=== PATIENT | female | born 1995 | race Caucasian/White ===

== ENCOUNTER → 2020-07-31 11:11 | Outpatient (BNVA) | payer MEDICAID, SELFPAY | PROVIDERS: Family Provider Registered Nurse; Visit Provider Obstetrics & Gynecology | DX: O99.891 Other specified diseases and conditions complicating pregnancy (principal); Z86.59 Personal history of other mental and behavioral disorders; Z3A.11 11 weeks gestation of pregnancy | CPT/HCPCS: 80307; 84315; 85027; 86592; 86762; 86803; 86850; 86900; 87077; 87086; 87184; 87340; 87491; 87591; 88175 ==

== ENCOUNTER → 2020-10-02 09:51 | Outpatient (BNVA) | payer MEDICAID, SELFPAY | PROVIDERS: Family Provider Registered Nurse; Visit Provider Obstetrics & Gynecology | DX: O99.891 Other specified diseases and conditions complicating pregnancy (principal); R82.71 Bacteriuria; Z28.3 Underimmunization status; Z3A.00 Weeks of gestation of pregnancy not specified | CPT/HCPCS: 84315; 87086 ==

== ENCOUNTER 2020-10-03 21:50 | Outpatient (CLI) | payer MEDICAID, SELFPAY ==
[2020-10-03] VITALS (7 sets, daily range): BP systolic 137; BP diastolic 80; PULSE 67–94; O2SAT 98–100; BMI 24.9
--- NOTE | 2020-10-03 22:19 | US_ITS ---
WS: [id number] ULTRASOUND EARLY TECHNIQUE: Transabdominal sonography of the pelvis was performed. CLINICAL INFORMATION: bleeding Beta hCG: Unknown. COMPARISON: September 26, 2020 FINDINGS: Cervix measures 4.4 cm UTERUS AND GESTATIONAL SAC Intrauterine gestations: Single intrauterine gestation. Normal cardiac activity. No evidence of placental abruption. Placenta is anterior. heart motion: 144 BPM. Subchorionic hemorrhage: None. FREE FLUID None. US/US OB limited [id number] IMPRESSION: 1. Single live intrauterine . 2. Cervix is closed measuring 4.4 cm 3. Placenta is anterior. No evidence of placental abruption.
== END 2020-10-03 23:06 | disposition home or self-care (01) ==
LOC: OBGYN 23:04 → OPOB 10-04 11:30 → OBGYN 10-05 07:57
PROVIDERS: PCP Registered Nurse; Visit Provider Obstetrics & Gynecology
DX: O46.90 Antepartum hemorrhage, unspecified, unspecified trimester (principal); Z3A.00 Weeks of gestation of pregnancy not specified
CPT/HCPCS: 76815; 99211; G0378; G0379

== ENCOUNTER → 2020-11-20 08:47 | Outpatient (BNVA) | payer MEDICAID, SELFPAY | PROVIDERS: PCP Registered Nurse; Visit Provider Obstetrics & Gynecology | DX: O99.891 Other specified diseases and conditions complicating pregnancy; R82.71 Bacteriuria; Z3A.00 Weeks of gestation of pregnancy not specified | CPT/HCPCS: 82950; 84315; 85025 ==

== ENCOUNTER → 2021-01-14 07:55 | Outpatient (BNVA) | payer MEDICAID, SELFPAY | PROVIDERS: PCP Registered Nurse; Visit Provider Obstetrics & Gynecology | DX: O36.60X0 Maternal care for excessive fetal growth, unspecified trimester, not applicable or unspecified (principal); Z3A.00 Weeks of gestation of pregnancy not specified | CPT/HCPCS: 82570; 84156; 84315; 87081 ==

== ENCOUNTER 2021-01-24 11:31 | Outpatient (CLI) | payer MEDICAID, SELFPAY ==
[2021-01-24 11:31] VITALS: BMI 28.8
[2021-01-24 12:38] LABS: Nitrazine Paper, PH Negative
[2021-01-24 12:49] LABS: Actim Prom Negative
[2021-01-24 14:00] VITALS: BP 115/77; PULSE 81; RESP 16; TEMP 36.3
[2021-01-24 14:01] VITALS: BP 115/77; PULSE 81; TEMP 36.3
== END 2021-01-24 14:10 | disposition home or self-care (01) ==
LOC: OPOB 11:37 → OBGYN 11:41
PROVIDERS: PCP Registered Nurse; Visit Provider Obstetrics & Gynecology
DX: O26.899 Other specified pregnancy related conditions, unspecified trimester (principal); Z3A.00 Weeks of gestation of pregnancy not specified; N89.8 Other specified noninflammatory disorders of vagina
CPT/HCPCS: 59025; 83986; 84112; 99211

== ENCOUNTER → 2021-02-01 10:03 | Outpatient (BNVA) | payer MEDICAID, SELFPAY | PROVIDERS: PCP Registered Nurse; Visit Provider Obstetrics & Gynecology | DX: Z20.822 Contact with and (suspected) exposure to COVID-19 (principal); Z30.2 Encounter for sterilization | CPT/HCPCS: 87635 ==

== ENCOUNTER 2021-02-02 08:02 | Inpatient (IN) | payer MEDICAID, SELFPAY ==
[2021-02-02] VITALS (40 sets, daily range): BP systolic 97–157; BP diastolic 61–91; PULSE 74–131; RESP 18–20; TEMP 36.3–36.9; O2SAT 98–100; BMI 28.9
[2021-02-02] MEDS: lactated ringers 1,000 ML 999 ML IV ×2 (09:05)
[2021-02-02] MEDS: fentaNYL 50 mcg/mL INJ 2mL IVP (10:04)
[2021-02-02 10:19] LABS: Hematocrit 40.3 % (37.0-47.0); Mean Corpuscular HGB Conc 32.3 g/dL (30.0-36.0); Mean Corpuscular Hemoglobin 27.4 pg (28.0-34.0); Mean Corpuscular Volume 84.8 fl (81-99); Mean Platelet Volume 11.8 fL (7.4-10.4); Nucleated Red Blood Cells % 0 %; Platelet Count 285 10^3/cmm (130-400); Red Blood Count 4.75 10^6/uL (4.1-5.3); Red Cell Distribution Width 12.4 % (12.1-15.1); White Blood Count 9.9 10^3/uL (4.0-10.0)
[2021-02-02 10:20] LABS: Basophils % 0.3 %; Eosinophils % 0.4 %; Monocytes # 0.7 10^3/uL (0.2-0.9); Monocytes % 6.6 %; Neutrophils # 7.28 10^3/uL (1.8-7.7); Neutrophils % 72.4 %
--- NOTE | 2021-02-02 10:20 | PM.OPHPUD ---
Labor & Delivery H&P Update Date of Procedure: February 02, 2021 Date H&P Performed: 01/29/21 H&P update information: I have reviewed H&P completed within last 30 days, I have examined patient prior to procedure, Changes to prior documentation as noted here and [place] is [place] [facility] [place] on date indicated Changes to previous documentation: Patient in labor cervix is 7 cm Admission Diagnosis:
--- NOTE | 2021-02-02 12:10 | PM.DELIVERY ---
Delivery Note: Date of delivery: February 02, 2021 - PRE-DELIVERY DIAGNOSIS: 25-year-old 2 para 1-0-0-1 at 38 weeks and 2 days gestation Active labor GBS negative Rubella nonimmune Polyhydramnios-mild Multiparity desiring permanent sterilization POST-DELIVERY DIAGNOSIS: Vaginal delivery on 02/02/2021 PROCEDURE: Vaginal delivery on 02/02/2021 ANESTHESIA: Epidural anesthesia DELIVERING PHYSICIAN: Marley Stephens FACOG PRE-DELIVERY COURSE: Ms. Mesa is a 25-year-old 2 para 1-0-0-1 at 38 weeks and 2 days who presented to labor and delivery with reports of contractions and bloody show. She was not sure if her water was broken. On exam at 7 AM on labor and delivery she was noted to be 5 cm 80% and -1 station with intact membranes. She had category 1 tracing and was luís every 2 to 3 minutes. She was admitted to labor and delivery in active labor. Covid swab and was done the day previous however has not resulted. She was making adequate cervical change and at 9 AM was 7 cm 100% and -1 station. She desired an epidural which was placed. She was 9 cm at 11 AM after the epidural and artificial rupture of membranes was performed at this time with clear fluid. She was fully dilated at 11:28 AM and +2 station. She was set up in lithotomy position ready for pressure she was uncomfortable. tracing had been category 1 thus far. DELIVERY NOTE: She was set up in lithotomy position and was pushing effectively. She was noted to be +3 station and continued pushing well. The head delivered in CHUYITA position, no nuchal cord was present. The shoulders and rest of the body followed with her next push. The baby's mouth and nose were suctioned and the baby was placed on the mother's belly. Once cord pulsations stopped the cord was clamped and cut. The placenta delivered spontaneously intact with membranes and was discarded. The fundus was noted to be firm and well contracted. The vagina and cervix were inspected and no cervical or sulcal lacerations were noted. The perineum was intact and there were a few labial abrasions which were hemostatic and did not need repair. Baby girl, Bernard born at 11:53 AM on 02/02/2019 with 8/9, weighing 8 pounds 2 ounces, 3690 g, 20-1/2 inches long. Placenta was delivered spontaneously intact with membranes at 11:57 AM. Cotyledons were intact , centrally inserted umbilical cord with 3 vessels noted. Estimated blood loss 200 mL. Complications-none, both baby and mother were left to recover in a stable condition She desired sterilization however since Covid results are not back discussed that this may not be possible. We will wait till this evening to see if results are back however if not we will plan for interval sterilization and she is okay with this. This documentation was created by [employer] housecleaner floor software (known for inherent housecleaner floor error). Every effort was made to assure accuracy of housecleaner floor. Any obvious errors or omissions should be clarified with the author of the document. Coding Level of Care Code Acute Envelope Addresser for Lizg Fwd History History History 2 Term 2 Miscarriages/Ectopic 0 0 Living Children 2 Other History: 2, Para 2002, x 2 1 ----> 2017-- Full term vaginal delivery. Male (Apollo), 7#4oz. with epidural delivered by Dr. Wolff at [facility] [place]. Perineum was intact. Patient presented to labor and delivery with SROM. 2 ----> 02/02/2021, vaginal delivery of a baby girl, Bernard weighing 8 pounds 2 ounces with epidural delivered by Dr. Stephens at [facility]. 38 weeks in active labor, intact perineum.
[2021-02-02] MEDS: ibuprofen 800 mg tablet PO ×2 (14:50→21:04)
[2021-02-03] VITALS: BP 120/82; PULSE 88; RESP 17; TEMP 36.7; O2SAT 98
[2021-02-03 00:21] LABS: Hemoglobin 10.7 g/dL (11.5-15.3); Mean Corpuscular HGB Conc 32.4 g/dL (30.0-36.0); Mean Corpuscular Hemoglobin 27.4 pg (28.0-34.0); Mean Corpuscular Volume 84.4 fl (81-99); Mean Platelet Volume 10.4 fL (7.4-10.4); Platelet Count 263 10^3/cmm (130-400); Red Blood Count 3.91 10^6/uL (4.1-5.3); Red Cell Distribution Width 12.5 % (12.1-15.1); White Blood Count 11.7 10^3/uL (4.0-10.0)
[2021-02-03 04:00] VITALS: BP 128/79; PULSE 79; RESP 17; TEMP 36.6; O2SAT 99
--- NOTE | 2021-02-03 08:02 | ANE.PACU2 ---
Inpatient post-anesthesia follow up: Airway intact: Yes Vital signs: Temperature 97.9 F Pulse Rate 95 Respiratory Rate 14 Blood Pressure 134/63 Pulse Oximetry 98 Oxygen Delivery Me thod Room Air Oxygen Flow Rate Fraction of Inspir ed Oxygen Hydration adequate: Yes Nausea and vomiting: No Pain level: 3 Mental status: Baseline
[2021-02-03] MEDS: docusate sodium 100 mg Capsule PO (09:11)
[2021-02-03] MEDS: ibuprofen 800 mg tablet PO ×2 (09:11→14:14)
[2021-02-03] MEDS: prenatal vitamin Capsule 1 CAP PO (09:11)
[2021-02-03 10:54] VITALS: BP 121/81; PULSE 79; RESP 18; TEMP 36.7; O2SAT 99
--- NOTE | 2021-02-03 11:14 | PM.OBGYDC ---
Discharge Providers WEATHER ALGORITHM SCIENTIST Date of Admission: 02/02/21 08:02 Date of Discharge: 02/03/21 Attending Provider at Admission: Marley Morales MD Attending Provider at Discharge: Marley Morales MD Primary Care Provider: RUSSELL Aguila PRE-DELIVERY DIAGNOSIS: 25-year-old 2 para 1-0-0-1 at 38 weeks and 2 days gestation Active labor GBS negative Rubella nonimmune Polyhydramnios-mild Multiparity desiring permanent sterilization POST-DELIVERY DIAGNOSIS: Vaginal delivery on 02/02/2021 PROCEDURE: Vaginal delivery on 02/02/2021 ANESTHESIA: Epidural anesthesia DELIVERING PHYSICIAN: Marley Stephens FACOG PRE-DELIVERY COURSE: Ms. Mesa is a 25-year-old 2 para 1-0-0-1 at 38 weeks and 2 days who presented to labor and delivery with reports of contractions and bloody show. She was not sure if her water was broken. On exam at 7 AM on labor and delivery she was noted to be 5 cm 80% and -1 station with intact membranes. She had category 1 tracing and was luís every 2 to 3 minutes. She was admitted to labor and delivery in active labor. Covid swab and was done the day previous however has not resulted. She was making adequate cervical change and at 9 AM was 7 cm 100% and -1 station. She desired an epidural which was placed. She was 9 cm at 11 AM after the epidural and artificial rupture of membranes was performed at this time with clear fluid. She was fully dilated at 11:28 AM and +2 station. She was set up in lithotomy position ready for pressure she was uncomfortable. tracing had been category 1 thus far. DELIVERY NOTE: She was set up in lithotomy position and was pushing effectively. She was noted to be +3 station and continued pushing well. The head delivered in CHUYITA position, no nuchal cord was present. The shoulders and rest of the body followed with her next push. The baby's mouth and nose were suctioned and the baby was placed on the mother's belly. Once cord pulsations stopped the cord was clamped and cut. The placenta delivered spontaneously intact with membranes and was discarded. The fundus was noted to be firm and well contracted. The vagina and cervix were inspected and no cervical or sulcal lacerations were noted. The perineum was intact and there were a few labial abrasions which were hemostatic and did not need repair. Baby girl, Bernard born at 11:53 AM on 02/02/2019 with 8/9, weighing 8 pounds 2 ounces, 3690 g, 20-1/2 inches long. Placenta was delivered spontaneously intact with membranes at 11:57 AM. Cotyledons were intact , centrally inserted umbilical cord with 3 vessels noted. Estimated blood loss 200 mL. Complications-none, both baby and mother were left to recover in a stable condition She desired sterilization however since Covid results are not back discussed that this may not be possible. We will wait till this evening to see if results are back however if not we will plan for interval sterilization and she is okay with this. HOSPITAL COURSE: She underwent an uncomplicated vaginal delivery on 02/02/2021. She did well on day 0 and was ambulating well, tolerating regular diet, voiding freely, passing flatus. She was breast-feeding without difficulty and bonding well with her daughter. Pain was well-controlled with by mouth pain medication. She denied nausea, vomiting, fever, chills, shortness of breath, leg pain. She had moderate vaginal bleeding. On day # 1 she continued to do well with stable vital signs and stable hemoglobin at 10.7. She was discharged home on day 1 in a stable condition, as she desired early discharge. Warning signs for endometritis, mastitis, DVT/PE were reviewed with her. Post delivery activity restrictions were also reviewed with her at all her questions were answered to her satisfaction. She desires interval sterilization for contraception and message sent to Lauri to get this scheduled on March 07, 2021 EXAM AT DISCHARGE: Gen.: No acute distress Heart: S1-S2 heard, regular rate and rhythm Lungs: Clear to auscultation bilaterally Abdomen: Soft, fundus firm below umbilicus, Legs: No calf tenderness, +1 bilateral pitting pedal edema. CONDITION AT DISCHARGE: Stable This documentation was created by [employer] hard tile setter apprentice software (known for inherent hard tile setter apprentice error). Every effort was made to assure accuracy of hard tile setter apprentice. Any obvious errors or omissions should be clarified with the author of the document. Reason for Visit Reason for Visit: IUP Information Peripartum Data: Infant Delivery Method: Vaginal Physical Exam Urinary Catheter Management^: Lewis: Cath Placed During This Visit: yes Urinary Catheter Date of Insertion: 02/02/21 Urinary Catheter Time of Insertion: 10:35 Discharge Data Data Completed and Pending: Labs from last 24 hours 02/03/21 00:09 WBC 11.7 H RBC 3.91 L Hgb 10.7 L Hct 33.0 L MCV 84.4 MCH 27.4 L MCHC 32.4 RDW 12.5 Plt Count 263 MPV 10.4 Vitals: Last Vital Signs Temp 98.1 F 02/03/21 10:54 Pulse 79 02/03/21 10:54 Resp 18 02/03/21 10:54 BP 121/81 02/03/21 10:54 Pulse Ox 99 02/03/21 10:54 Discharge Plan Discharge Patient Disposition: Home Condition: Stable Prescriptions: New docusate sodium 100 mg Capsule 100 mg PO BID PRN (Reason: constipation) Qty: 30 RF: 0 ibuprofen 800 mg tablet 800 mg PO Q8H Qty: 30 RF: 0 Continued prenat.vits,luis,[id number] Tablet 1 tab PO DAILY RF: 0 Pepcid 20 mg Tablet 20 mg PO BID RF: 0 Discharge Orders: Discharge Order (Routine); Ordered 02/03/21 Ordered By: Marley Morales Patient Instructions: Bottle Feeding Your Baby (GEN), Pre-eclampsia and Eclampsia (DC), Bleeding (DC), OB Discharge Report, OB Food/Drug Interaction Guide, OB Care at Home, Opioid Safety, OB Home Care, OB Vaginal Deliveries - [facility], Abnormal Bleeding, Depression Discharge Attestations WEATHER ALGORITHM SCIENTIST Time Spent in Discharge Care*: greater than 30 min Coding Level of Care Code Acute Vat House Supervisor for Bonifacio Heaton
--- NOTE | 2021-02-03 12:36 | PC.NURSE ---
Patient requests medications be sent to [facility] in [place], [place]. Patient states she doesn't want to stop at [facility] to get them today and lives in [place] and [facility] be easier. Patient understands she will not be able to get them until Thursday.
[2021-02-03] MEDS: measles,mumps,rubella pf Vial (w/diluent) 0.5 ML SUBCUT (13:43)
[2021-02-03 14:15] VITALS: BP 134/63; PULSE 95; RESP 14; TEMP 36.6; O2SAT 98
[2021-02-03 15:13] VITALS: BP 134/63; PULSE 95; RESP 14; TEMP 36.6; O2SAT 98
== END 2021-02-03 14:40 | disposition home or self-care (01) | DRG 807 ==
LOC: OPOB 08:05 → OBGYN 08:05
PROVIDERS: Admitting Provider Obstetrics & Gynecology; PCP Registered Nurse; Visit Provider Obstetrics & Gynecology
DX: O40.3XX0 Polyhydramnios, third trimester, not applicable or unspecified (principal); Z37.0 Single live birth; O09.43 Supervision of pregnancy with grand multiparity, third trimester; Z3A.38 38 weeks gestation of pregnancy
CPT/HCPCS: 36415; 51702; 59025; 59409; 83986; 85025; 85027; 90707; 96372; 96374; 99211; J2795; J3010

== ENCOUNTER → 2021-03-18 11:34 | Outpatient (BNVA) | payer MEDICAID, SELFPAY | PROVIDERS: PCP Registered Nurse; Visit Provider Obstetrics & Gynecology | DX: Z30.9 Encounter for contraceptive management, unspecified (principal) | CPT/HCPCS: 81025 ==

== ENCOUNTER → 2021-04-05 08:20 | Outpatient (BNVA) | payer MEDICAID, SELFPAY | PROVIDERS: PCP Registered Nurse; Visit Provider Obstetrics & Gynecology | DX: Z20.822 Contact with and (suspected) exposure to COVID-19 (principal) | CPT/HCPCS: 87635 ==

== ENCOUNTER 2021-04-11 07:49 | Day surgery (SDC) | payer MEDICAID, SELFPAY ==
[2021-04-10 10:33] VITALS: BMI 25.5
[2021-04-11] VITALS (15 sets, daily range): BP systolic 114–166; BP diastolic 39–114; PULSE 66–98; RESP 13–18; TEMP 36.2–37.6; O2SAT 98–100
[2021-04-11 08:08] LABS: OR HCG Qualitative Urine Negative (Negative)
--- NOTE | 2021-04-11 08:23 | ANES.PREANE2 ---
Pre-Anesthetic Assessment Pre-Anesthetic Assessment: Height/Weight: Height 1.63 m Weight 67.585 kg Temp Pulse Resp BP Pulse Ox 99 F 73 18 114/79 99 04/11/21 08:16 04/11/21 08:16 04/11/21 08:16 04/11/21 08:16 04/11/21 08:16 Preop Diagnosis: Multiparity desiring permanent sterilization Proposed Procedure: Operation Date: 04/11/21 09:35 Proposed Procedures p Laparoscopic Salpingectomy 08334 Z30.2(Bilateral) - Marley Morales MD Was Beta Acacia taken within 24 hours: N/A Was Clonidine taken within 24 hours: N/A Last intake: Intake Last Liquid Date 04/10/21 Last Liquid Time 20:30 Last Solid Date 04/10/21 Last Solid Time 18:00 Social: Social History: No tobacco Exam: Pre-Anes Outpt Exam: alert, oriented x 3, clear to auscultation bilaterally and regular rate & rhythm Airway: Submandibular: WNL Cervical ROM: WNL MP: 1 Dentition: Full History/ROS: No significant history except as noted and No significant complaints Anesthetic Plan: ASA status: 1 Anesthesia: Anesthesia Evaluation and General Risk of > 500 ml blood loss (7ml/kg in children): No PFSH Anesthesia PFSH: Medical History No pertinent past medical history Denies diabetes, asthma, hypertension, seizures, DVT/PE PCP: Moshe Mcclelland PRE PLANNING ADVISOR Surgical History No pertinent past surgical history Family History Denies family history of Diabetes CAD (coronary artery disease) Hyperlipidemia Bleeding disorder Family history of premature coronary artery disease Cancer Hypertension Stroke Social History (Updated 04/10/21 @ 10:30 by Tiffanie Pitts) Smoking and tobacco status: never smoked Alcohol intake: never Data Anesthesia Other Labs: Laboratory Results - last 48 hr 04/11/21 07:57 Urine HCG, Qual Negative Cardiac Studies: No Data to Display
[2021-04-11] MEDS: sodium chloride 0.9% 1,000 ML 30 ML IV (08:33)
[2021-04-11 08:38] LABS: Basophils % 0.5 %; Eosinophils % 0.6 %; Hemoglobin 13.5 g/dL (11.5-15.3); Lymphocytes # 2.4 10^3/uL (0.8-4.8); Lymphocytes % 36.3 %; Mean Corpuscular HGB Conc 32.9 g/dL (30.0-36.0); Mean Corpuscular Hemoglobin 27.5 pg (28.0-34.0); Mean Corpuscular Volume 83.5 fl (81-99); Mean Platelet Volume 9.9 fL (7.4-10.4); Monocytes # 0.4 10^3/uL (0.2-0.9); Monocytes % 6.5 %; Neutrophils # 3.71 10^3/uL (1.8-7.7); Neutrophils % 55.9 %; Nucleated Red Blood Cells % 0 %; Platelet Count 379 10^3/cmm (130-400); Red Blood Count 4.91 10^6/uL (4.1-5.3); Red Cell Distribution Width 14.3 % (12.1-15.1); White Blood Count 6.6 10^3/uL (4.0-10.0)
--- NOTE | 2021-04-11 08:45 | W.PM.OPSUD ---
Surgery/Procedure H&P Update DATE OF PROCEDURE: April 11, 2021 DATE H&P PERFORMED: 03/18/21 H&P UPDATE INFORMATION: I have reviewed H&P completed within last 30 days, I have examined patient prior to procedure, No changes to prior documentation and H&P is in [facility] EMR on date indicated PREOP DIAGNOSIS: Multiparity desiring permanent sterilization PLANNED PROCEDURE: Operation Date: 04/11/21 09:35 Proposed Procedures p Laparoscopic Salpingectomy 52126 Z30.2(Bilateral) - Marley Morales MD
[2021-04-11] MEDS: silver nitrate applicator 3 EACH TOPICAL (10:06)
--- NOTE | 2021-04-11 10:20 | PM.OP ---
Operative Report Date of procedure: April 11, 2021 allOPERATIVE REPORT Date of surgery: 04/11/2021 Date of dictation: 04/11/2021 Preoperative diagnosis: Multiparity desiring permanent sterilization Postoperative diagnosis/findings: Normal tubes and ovaries bilaterally, no adhesions, normal uterus, small subcentimeter paratubal cyst on left ovary which was removed Procedure done: Laparoscopic bilateral total salpingectomy for sterilization Specimens removed/disposition of specimens: Right and left fallopian tube sent to pathology Surgeon: Dr. Marley Stephens acquisitions assistant: Taylor Sanchez Anesthesia: General endotracheal tube anesthesia Estimated blood loss: 25 ml Intravenous fluids: 200 mL of LR Urine output: 50 mL of clear urine at the end of procedure Medications: As per anesthesia records Complications: None, patient was extubated and taken to the recovery room in a stable condition PROCEDURE: After consents were signed patient was taken to the operating room where she was placed under general anesthesia without any difficulty. She was placed supine on the table in the lithotomy position. Exam under anesthesia revealed findings noted above. She was then prepped and draped in usual sterile fashion. Weighted speculum and anterior wall retractors were placed in the vagina, cervix visualized and grasped with a tenaculum. ZUMI uterine manipulator was placed into the uterus without any difficulty. Catheter was placed, instruments were removed from the vagina and the legs were lowered. Attention was turned towards the abdomen where local anesthetic was injected in to her umbilicus. A 10 mm skin incision was made and a 10 mm port was placed through the umbilicus using an open technique--- fascia was identified and tented up with Jovany clamps and directly incised using curved Mayos. Peritoneum was then bluntly entered digitally and palpation revealed no adhesions around site of entry. Hobson trocar was then attached to the fascia and inflated. Once intra-abdominal entry was confirmed gas was turned on and intra-abdominal opening pressure was 2. The abdomen is insufflated to the pressure was 14. Survey of the abdomen revealed findings noted above. Two 5 mm trocar was placed into the left and right lower quadrant under direct visualization after injecting local anesthetic. The IForemyant device was used to clamp, cauterize and then cut the mesosalpinx under the fallopian tube starting at the fimbriated end and moving towards the uterus. This was done in a sequential fashion in such a way that the entire fallopian tube was from the sidewall and the uterus. The small cornual stump was cauterized as well. This was done first on the right side and then the left side without any difficulty. The right and left fallopian tubes were taken out of the umbilical port without any difficulty. No bleeding was noted at sites of surgery. Trochars were removed under direct visualization. All instruments removed from the abdomen and the abdomen was desufflated. The fascia on the umbilical port was closed with 0 Vicryl in a continuous fashion and good reapproximation was obtained-care was taken to tent up the fascia throughout the closure. The skin incisions was closed with 4-0 Monocryl in a subcuticular fashion good reapproximation and hemostasis was noted. The incisions were dressed with Steri-Strips Telfa and Tegaderm. The ZUMI and Lewis catheter were removed and good hemostasis was achieved on the cervix with silver nitrate . The patient was extubated without any difficulty and taken to the recovery room in a stable condition. FOLLOW UP: Follow-up in 2 weeks and 6 weeks with surgeon MEDICATION ON DISCHARGE: Colace 100 mg by mouth every 12 hours when necessary constipation, 30 tablets, no refills Ibuprofen 800 mg by mouth every 8 hours when necessary pain, 60 tablets, no refills. Nyssa 5/325 mg 1 tablet by mouth every 6 hours when necessary pain,25 tablets, no refills Continue other home medication DISPOSITION: Home in a stable condition This documentation was created by [employer] dye lab technician software (known for inherent dye lab technician error). Every effort was made to assure accuracy of dye lab technician. Any obvious errors or omissions should be clarified with the author of the document. Pre-op Diagnosis: Multiparity desiring permanent sterilization
[2021-04-11] MEDS: fentaNYL 50 mcg/mL INJ 2mL IVP ×2 (10:36→11:48)
[2021-04-11] MEDS: ibuprofen 800 mg tablet PO (11:09)
[2021-04-11] MEDS: HYDROcodone-acetaminophen 5-325 mg Tablet 1 TAB PO (11:10)
--- NOTE | 2021-04-11 15:31 | ANE.PACU2 ---
Inpatient post-anesthesia follow up: Airway intact: Yes Vital signs: Temperature 99 F Pulse Rate 79 Respiratory Rate 14 Blood Pressure 134/81 Pulse Oximetry 99 Oxygen Delivery Me thod Room Air Oxygen Flow Rate Fraction of Inspir ed Oxygen Hydration adequate: Yes Nausea and vomiting: No Pain level: 3 Mental status: Baseline
== END 2021-04-11 12:15 | disposition home or self-care (01) ==
PROVIDERS: PCP Registered Nurse; Visit Provider Obstetrics & Gynecology
PROC: (CPT 58661; principal; 2021-04-11 09:25)
DX: Z30.2 Encounter for sterilization (principal); N83.8 Other noninflammatory disorders of ovary, fallopian tube and broad ligament
CPT/HCPCS: 58661; 36415; 81025; 84703; 85025; 86850; 86900; 88302; J1100; J2405; J2704; J3010; J3490; J7030

== ENCOUNTER 2021-04-17 10:51 | Emergency (ER) | payer MEDICAID, SELFPAY ==
[2021-04-17 11:08] VITALS: BP 121/85; PULSE 74; RESP 17; TEMP 37.1; O2SAT 97; BMI 24.9
--- NOTE | 2021-04-17 11:50 | W.ED.WOUNDLC ---
HPI - Wound/Laceration General: Chief Complaint: General Medical Stated Complaint: PT says possible infection and chest pain Time Seen by Provider: 04/17/21 11:35 Source: patient Mode of arrival: ambulatory Limitations: no limitations History of Present Illness: HPI narrative: Patient is a 25-year-old female who presents to the ED today with concerns of drainage from her umbilical incision. Patient underwent bilateral total salpingectomy from Dr. Stephens on 04/11. Patient states over the past 24 to 48 hours she has developed drainage from her umbilical incision. She has also noticed a small amount of redness. Patient has not been running fevers. She is not having complaints of abdominal pain. Onset (ago): hour(s) Patient tetanus UTD: Yes Associated symptoms: Reports no associated symptoms; Denies fever(s), nausea or vomiting Treatments prior to arrival: bandage Review of Systems Const: Denies: fever(s), body aches, fatigue or malaise Card: Denies: chest pain Resp: Denies: dyspnea GI: Reports: other (pain around umbilical incision); Denies: abdominal pain, nausea, vomiting or diarrhea : Denies: flank pain, difficulty voiding, dysuria, urinary frequency or urinary urgency Skin/Breast: Reports: surgical incision [facility] ED PFSH: Medical History (Updated 04/17/21 @ 12:04 by HUI Barajas) No pertinent past medical history Denies diabetes, asthma, hypertension, seizures, DVT/PE PCP: Moshe WELLS Surgical History (Updated 04/11/21 @ 10:22 by Marley Morales MD) Status post tubal ligation 04/11/2021--laparoscopic bilateral total salpingectomy for sterilization performed by Dr. Stephens at [facility]. -Pathology showed Family History Denies family history of Diabetes CAD (coronary artery disease) Hyperlipidemia Bleeding disorder Family history of premature coronary artery disease Cancer Hypertension Stroke Social History (Updated 04/10/21 @ 10:30 by Tiffanie Pitts) Smoking and tobacco status: never smoked Alcohol intake: never Physical Exam Const: COMMON NORMALS: no acute distress, patient oriented x3, no limitations and alert GENERAL APPEARANCE: cooperative ORIENTATION/CONSCIOUSNESS: Yes awake, Yes oriented to person, Yes oriented to place and Yes oriented to time GI: COMMON NORMALS: Normal to inspection, nondistended, normoactive bowel sounds present, Soft to palpation, No hepatosplenomegaly present and no masses INSPECTION: Yes normal to inspection PALPATION: Yes Soft to palpation, Yes Tenderness to palpation present (GI) (around umbilicus ) and Yes No hepatosplenomegaly present OTHER: pt has small surgical incision to umbilicus with about an inch of surrounding induration (some of this may be scar tissue from previous piercing); she has a small amount of bloody nonodorous serosanguineous drainage on her dressing; she has about 2 inches of erythema to the inferior aspect of her incision that appears to be irritation from her tape; mild pain around incision but no other abdominal pains present Neuro: COMMON NORMALS: patient oriented x3 SENSORIUM/ORIENTATION: Yes alert, Yes oriented to person, Yes oriented to place and Yes oriented to time Skin: NARRATIVE SKIN EXAM: see GI assessment Course Consultations: Consultation #1: Dr. Childs-will see patient at 8:15am tomorrow; agreed with Keflex; no need for US/CT imaging at this time Vital Signs: Vital signs: Vital Signs Temperature 98.8 F 04/17/21 11:08 Pulse Rate 74 04/17/21 11:08 Respiratory Rate 17 04/17/21 11:08 Blood Pressure 121/85 04/17/21 11:08 Pulse Oximetry 97 04/17/21 11:08 MDM - Wound/Laceration MDM Narrative: Medical decision making narrative: Patient here for some redness, mild tenderness, and drainage from an umbilical surgical incision. Patient is not tachycardic or febrile. Clinically I think an abscess would be fairly unlikely. Most likely this is just a seroma that has formed. I spoke to SET AND EXHIBIT DESIGNER on-call who will see her 0815 tomorrow for evaluation. Patient was given IM Rocephin for MSSA coverage will be placed on Keflex. Discharge Plan Discharge Patient Disposition: Home Clinical Impression: Problem involving surgical incision Condition: Stable Prescriptions: New cephalexin 500 mg capsule 500 mg PO Q6H 7 Days Qty: 28 RF: 0 No Action ibuprofen 800 mg tablet 800 mg PO Q8H Qty: 30 RF: 0 hydrocodone-acetaminophen 5-325 mg tablet 1 tab PO Q6H Qty: 25 RF: 0 docusate sodium 100 mg Capsule 100 mg PO BID PRN (Reason: constipation) Qty: 30 RF: 0 Discharge Orders: Discharge ED (Routine); Ordered 04/17/21 Ordered By: Yocasta Pope Referrals: Thanh Mcclelland FNP [Primary Care Provider] - Michaela Childs MD [Physician] - Activity Restrictions/Additional Instructions: As we discussed Dr. Childs will see you at 815 tomorrow [facility] of your surgical incision. Please fill antibiotics immediately and start them. Keep area clean with warm soap and water. Coding Level of Care Code ED Sand Polisher for Bonifacio Heaton
[2021-04-17 12:03] VITALS: BP 111/78; PULSE 74; RESP 18; TEMP 37.3; O2SAT 100
[2021-04-17] MEDS: cefTRIAXone 1,000 MG in lidocaine 1% 2.1 ML 1 MG IM (12:16)
--- NOTE | 2021-04-17 12:17 | PC.NURSE ---
IM injection given, not IV. NO IV only IM
[2021-04-17 12:28] VITALS: BP 117/77; PULSE 75; RESP 18; O2SAT 99
== END 2021-04-17 12:31 | disposition home or self-care (01) ==
PROVIDERS: Emergency Provider Physician Assistant; PCP Registered Nurse
DX: T81.89XA Other complications of procedures, not elsewhere classified, initial encounter (principal)
CPT/HCPCS: 96372; 99283; J0696